=== PATIENT | male | born 1945 | race Caucasian/White ===

== ENCOUNTER → 2017-02-20 | Outpatient (CLI) | payer OTHER ==
[~2017-02-20] MED LIST: ALLO15TA OR; AMLO5TAB2 PO; ASPI81TA11 PO; ATEN50TA2 PO; BENA5TA PO; CIPR500T89 PO; FURO20TA2 PO; GLIP5TAB8 PO; HYDR25TAB PO; LEVO75TA4 PO; LISI10TA4 PO; MIRT30TA3 PO; OCUVTAB PO; PERCOCET PO; PRAZ5CAP PO; SERT50TA PO; SIMV20TA2 PO; TRAD5TAB PO; VITA50003 PO; ZYLO300T4 PO
--- NOTE | 2017-02-23 10:25 | SLEEPCENT ---
DATE OF PROCEDURE: 02/20/2017 ORDERED BY: Dr. Mullen Nocturnal polysomnography was performed for evaluation of sleep apnea syndrome symptoms. 8 hours and 34 minutes of data were reviewed. There were 268 minutes of sleep identified. Sleep latency was prolonged at 110 minutes. Rapid eye movement (REM) latency was normal at 93 minutes. Sleep architecture showed fragmentation and poor progression. There were 3 REM periods appreciated. Overall sleep efficiency was 52.8%. Electrocardiogram (EKG) showed a sinus rhythm with an average heart rate of 66 beats per minute. Electroencephalogram (EEG) showed reasonably normal waveforms for awake and sleep. There were 138 respiratory events identified of 10 seconds in duration or greater for an apnea-hypopnea index of 30.8. The events were primarily obstructive, not exclusive to sleep stage, more frequent but not exclusive to the supine posture. Arousals from respiratory events occurred 24.1 times per hour and oxygen desaturations were seen in to the low 80s. There was some limb activity identified with 2 trains of 30 events. Limb movement arousal index was 6.5. IMPRESSION: 1. Severe obstructive sleep apnea syndrome (G47.33), apnea-hypopnea index 30.8. 2. Mild periodic limb movement disorder (G47.61), limb movement arousal index 6.5. RECOMMENDATION: The patient should be encouraged to return to the sleep disorder center for pressure therapy. In the interim, alcohol and sedative avoidance should be practiced and caution exercised during the operation of motor vehicles. Pending response to pressure therapy, interventions to reduce the frequency of arousals from limb activity may be helpful.
== END ==
LOC: M SLEEP 19:27
PROVIDERS: ATTEND Family Medicine
DX: G47.33 Obstructive sleep apnea (adult) (pediatric) (principal)

== ENCOUNTER → 2017-05-03 | Day surgery (SDC) | payer OTHER ==
[~2017-05-03] VITALS: Ht 182.9 cm; Wt 94.8 kg
[~2017-05-03] MED LIST changes: +ASPI-101 PO; +ASPI1TAB PO; -ASPI81TA11 PO; +CIPR-249 PO; -CIPR500T89 PO; +LEVO88TA3 PO; +LIDOCAINE 1% MDV 20ML VIAL SQ ONE; +LIDOCAINE 2% INJ 100 MG/5 ML SDV (FOR ANES.) As Ordered ONE; +LIDOCAINE W/EPINEPHRINE 1% 20ML VIAL As Ordered ONE; +LR 1,000 ML IV ONE; +LR 1,000 ML IV SCH; +MIDAZOLAM INJ 2 MG/2 ML VIAL (J2250) As Ordered ONE; +ONDANSETRON 4MG/2ML VIAL (J2405) As Ordered ONE; +ONDANSETRON 4MG/2ML VIAL (J2405) IV PRN; +PRAZ2CAP PO; +PROPOFOL 200 MG/20 ML VIAL As Ordered ONE; +ROCURONIUM BROMIDE 50 MG/5 ML VIAL/SYRINGE As Ordered ONE; +TRAM37.53 PO; +TRUL10IN SC; +VITA1CAP40 PO; -VITA50003 PO; +[UNRECOGNIZED DRUG - CODE] PO; +dexameTHASONE 4 MG/ML 1ML VIAL (J1100) IV ONE; +ePHEDrine SULFATE 25 MG/5 ML(5MG/ML) SYRINGE As Ordered ONE; +fentaNYL 100 MCG/2 ML INJECTION (J3010) As Ordered ONE; +fentaNYL 100 MCG/2 ML INJECTION (J3010) IV PRN
[2017-05-03 15:45] VITALS: BP 157/79
--- NOTE | 2017-05-15 23:29 | RO ---
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 POSTPROCEDURE DIAGNOSIS: Left and right buccal leukoplakia. OPERATIVE PROCEDURES: Biopsy of the right and the left buccal mucosa. CO2 laser ablation of the leukoplakia of the right and the left buccal mucosa. SURGEON: Abad Serrano MD [employer] OFFBEARER: ANESTHESIA: General. CLINICAL PREAMBLE: This 71-year-old man presented to the office with history of chewing tobacco as well as complaining of the bilateral buccal mucosal surfaces. Management options including the surgery listed above have been discussed. The patient understood and consented to the procedure. DESCRIPTION OF OPERATION: The patient was identified in preoperative holding and brought to the operating room in stable condition. In supine position on the operating room table, the patient received general anesthesia followed orotracheal intubation with a CO2 laser safe endotracheal tube. The patient was prepped and draped in the usual fashion for the procedure. Bimanual palpation of the oral cavity, oral tongue, base of tongue, buccal and lateral posterior pharyngeal wall was negative for discrete mass lesions. Biopsy was then obtained from the leukoplakia of the right as well as the left buccal mucosa using 5 mm punch biopsy forcep. At this time using the Omni CO2 laser with flexible fibers system the leukoplakia on the left as well as the right buccal mucosal surface were successfully ablated. The total surface area ablated on the right side was approximately 3 cm2 in size and 2 cm2 in size for the left buccal mucosal surface. Complete hemostasis was observed at the end of the case. Estimated blood loss was less than 1 mL. No complications were encountered. General anesthesia was reversed and the patient was extubated and brought to the recovery room in stable condition. XUAN
== END | disposition home or self-care (01) ==
LOC: M SDC 08:23
PROVIDERS: ATTEND Otolaryngology
DX: K13.21 Leukoplakia of oral mucosa, including tongue (principal); I10 Essential (primary) hypertension; E78.2 Mixed hyperlipidemia; E11.9 Type 2 diabetes mellitus without complications; E03.9 Hypothyroidism, unspecified; M10.9 Gout, unspecified; F43.12 Post-traumatic stress disorder, chronic; N18.3 Chronic kidney disease, stage 3 (moderate); Z79.82 Long term (current) use of aspirin; Z79.899 Other long term (current) drug therapy; F41.9 Anxiety disorder, unspecified; N40.0 Benign prostatic hyperplasia without lower urinary tract symptoms; B35.1 Tinea unguium; E13.21 Other specified diabetes mellitus with diabetic nephropathy; F32.9 Major depressive disorder, single episode, unspecified; M54.5 Low back pain; Z87.891 Personal history of nicotine dependence
CPT/HCPCS: 40808; 40820; 88305; J1100; J2250; J2405; J3010

== ENCOUNTER → 2019-10-17 | Outpatient (REF) | payer OTHER ==
[~2019-10-17] MED LIST changes: -ALLO15TA OR; +ALLO300T2 OR; -AMLO5TAB2 PO; +AMLO5TAB6 PO; -ASPI-101 PO; -ASPI1TAB PO; +ASPI81TA26 PO; +ASPI81TA78 PO; +HYDR-2541 PO; -LIDOCAINE 1% MDV 20ML VIAL SQ ONE; -LIDOCAINE 2% INJ 100 MG/5 ML SDV (FOR ANES.) As Ordered ONE; -LIDOCAINE W/EPINEPHRINE 1% 20ML VIAL As Ordered ONE; -LR 1,000 ML IV ONE; -LR 1,000 ML IV SCH; -MIDAZOLAM INJ 2 MG/2 ML VIAL (J2250) As Ordered ONE; -ONDANSETRON 4MG/2ML VIAL (J2405) As Ordered ONE; -ONDANSETRON 4MG/2ML VIAL (J2405) IV PRN; -PROPOFOL 200 MG/20 ML VIAL As Ordered ONE; -ROCURONIUM BROMIDE 50 MG/5 ML VIAL/SYRINGE As Ordered ONE; +SERT-141 PO; -SERT50TA PO; -SIMV20TA2 PO; +SIMV20TA22 PO; -VITA1CAP40 PO; +VITA50005 PO; -ZYLO300T4 PO; +ZYLO300T6 PO; -dexameTHASONE 4 MG/ML 1ML VIAL (J1100) IV ONE; -ePHEDrine SULFATE 25 MG/5 ML(5MG/ML) SYRINGE As Ordered ONE; -fentaNYL 100 MCG/2 ML INJECTION (J3010) As Ordered ONE; -fentaNYL 100 MCG/2 ML INJECTION (J3010) IV PRN
[2019-10-17 15:02] LABS: ALBUMIN 3.8 GM/DL (3.2-5.2); CALCIUM LEVEL 9.2 MG/DL (8.8-10.2); CREATININE FOR GFR 2.09 MG/DL (0.70-1.30); GLOMERULAR FILTRATION RATE 33.1 (>42); PHOSPHORUS LEVEL 2.6 MG/DL (2.5-4.9); URIC ACID 4.5 MG/DL (3.5-7.2)
== END ==
LOC: M LAB REF 13:52
PROVIDERS: ATTEND Internal Medicine Nephrology
DX: N18.3 Chronic kidney disease, stage 3 (moderate) (principal); N20.0 Calculus of kidney; E11.21 Type 2 diabetes mellitus with diabetic nephropathy

== ENCOUNTER → 2022-09-21 | Outpatient (REF) | payer MEDICARE ==
[~2022-09-21] MED LIST changes: +AMLO1TAB24 PO; -AMLO5TAB6 PO; +BENA1TAB23 PO; -BENA5TA PO; +HYDR-3490 PO; -HYDR25TAB PO; +LISI10TA22 PO; -LISI10TA4 PO
[2022-09-21 17:58] LABS: CREATININE, URINE 33.5 MG/DL; MAU/CREAT RATIO 59.7 MCG/MG (0.0-30.0)
== END ==
LOC: M LAB REF 16:54
PROVIDERS: ATTEND Internal Medicine Nephrology
DX: N18.32 Chronic kidney disease, stage 3b (principal); E11.22 Type 2 diabetes mellitus with diabetic chronic kidney disease